=== PATIENT | female | born 1960 | race Caucasian/White ===

== ENCOUNTER → 2020-07-19 | Outpatient (CLI) | payer OTHER ==
[2020-07-19 13:23] LABS: INR 0.9 (<1.2); Partial Thromboplastin Time 23.6 sec (22.0-30.0); Prothrombin Time 10.1 sec (9.0-12.0)
[2020-07-19 13:25] LABS: Appearance,Urine Clear (Clear); Bilirubin,Urine Negative (Negative); Blood,Urine Negative (Negative); Color,Urine Colorless; Glucose,Urine (UA) Negative (Negative); Ketones,Urine Negative (Negative); Leukocyte Esterase,Urine Negative (Negative); Nitrite,Urine Negative (Negative); PH, Urine 6.5 (5.0-8.0); Protein,Urine Negative (Negative); Specific Gravity,Urine 1.003 (1.001-1.035); Urobilinogen,Urine <2.0 mg/dL (<2.0)
[2020-07-19 20:25] LABS: HGB 13.9 g/dL (12.0-15.0); MCHC 33.1 g/dL (32.0-37.0); MCV 90.5 fL (80.0-97.0); Mean Platelet Volume 10.2 fL (9.5-12.2); Platelet Count 251 X 10*3/uL (140-440); RBC 4.64 X 10*6/uL (4.10-5.20); RDW 12.6 % (11.5-14.5); WBC 6.06 X 10*3/uL (4.50-10.00)
[2020-07-20 03:51] LABS: African American GFR (CKD) 92.9 (60.0-200.0); Albumin 4.3 g/dL (3.80-4.90); Albumin/Globulin Ratio 1.79 (1.60-3.17); Anion Gap 11.8 mmol/L (4.00-12.00); Calcium 9.6 mg/dL (8.7-10.3); Carbon Dioxide 24.2 mmol/L (21.6-31.8); Globulin 2.4 g/dL (1.6-3.3); Non-African American GFR(CKD) 80.1 (60.0-200.0); Potassium 4.7 mmol/L (3.5-5.5); Total Bilirubin 0.4 mg/dL (0.3-1.2); Total Protein 6.7 g/dL (6.2-8.2)
== END | disposition home or self-care (01) ==
LOC: LABWHC1 11:31
PROVIDERS: ATTEND Orthopaedic Surgery
DX: Z01.812 Encounter for preprocedural laboratory examination (principal); M16.11 Unilateral primary osteoarthritis, right hip
CPT/HCPCS: 36415; 80053; 81003; 85027; 85610; 85730; 87070

== ENCOUNTER 2020-07-30 10:57 | Day surgery (SDC) | payer OTHER ==
[2020-07-24 15:59] VITALS: BMI 40.1
[~2020-07-30 10:57] MED LIST: ACETAMINOPHEN TAB 500 MG TAB PO PRN; DEXAMETHASONE SOD PHOSPHATE 4 MG/ML 1 ML VIAL IV ONE; GABAPENTIN 300 MG CAP PO PRN; HYDROmorphone 0.5 MG/0.5 ML SYRINGE IVP PRN; MELOXICAM 7.5 MG TAB PO PRN; MIDAZOLAM 2 MG/2 ML VIAL IV PRN; ONDANSETRON 4 MG/2 ML VIAL IVP ONE; SCOPOLAMINE 1.5MG/72HR PATCH TRANSDERM ONE; TRANEXAMIC ACID 1,000 MG in SODIUM CHLORIDE 0.9% 100 ML IVPB PRN
[2020-07-30] MEDS: LACTATED RINGERS 1,000 ML IV SCH (11:54)
[2020-07-30] MEDS ORDERED: HYDROmorphone 1 MG/ML 1 ML SYRINGE IVP PRN (12:31)
[2020-07-30] MEDS ORDERED: HYDROmorphone 0.2 MG/1 ML SYRINGE IVP PRN (12:31)
[2020-07-30] MEDS ORDERED: MAGNESIUM HYDROXIDE 2,400 MG/10 ML CUP PO PRN (12:31)
[2020-07-30] MEDS ORDERED: ONDANSETRON 4 MG/2 ML VIAL IVP PRN (12:31)
[2020-07-30] MEDS ORDERED: NALOXONE 0.4 MG/ML 1 ML VIAL IV PRN (12:31)
[2020-07-30] MEDS ORDERED: HYDROmorphone 0.5 MG/0.5 ML SYRINGE IVP PRN (12:31)
[2020-07-30] MEDS ORDERED: hydrOXYzine pamoate 25 MG CAP PO PRN (12:31)
[2020-07-30] MEDS ORDERED: HYDROcodone/APAP 7.5-325MG 1 EACH TAB PO PRN (12:34)
[2020-07-30] MEDS ORDERED: SODIUM CHLORIDE 0.9% IRRIG 1,000 ML BTL IRRIGATION ONE (12:44)
[2020-07-30] MEDS ORDERED: PHENYLEPHRINE-0.9% NACL SYG 1,000 MCG/10 ML SYRINGE ONE (12:44)
[2020-07-30] MEDS ORDERED: PROPOFOL 10 MG/ML 20 ML VIAL IV ONE (12:44)
[2020-07-30] MEDS ORDERED: HEPARIN SODIUM,PORCINE 10,000 UNIT/ML 1 ML VIAL ONE (12:44)
[2020-07-30] MEDS ORDERED: ePHEDrine SULFATE/0.9% NACL/PF 50 MG/5 ML SYRINGE IV ONE (12:44)
[2020-07-30] MEDS ORDERED: MIDAZOLAM 2 MG/2 ML VIAL ONE (12:44)
[2020-07-30] MEDS ORDERED: ceFAZolin 3,000 MG in SODIUM CHLORIDE 0.9% IRRIGATIO 3,000 ML IRRIGATION ONE (12:46)
[2020-07-30] MEDS: ROPIVACAINE/EPI/CLONIDINE/KET 50 ML SYRINGE MISCELLANE PRN ×2 (13:21→14:33)
[2020-07-30] MEDS ORDERED: LACTATED RINGERS 1,000 ML IV ONE ×2 (13:36→15:31)
--- NOTE | 2020-07-30 14:59 | FL ---
EXAMINATION TYPE: FL guidance operating room, XR Hip Limited RT DATE OF EXAM: 07/30/2020 CLINICAL HISTORY: Right hip pain and osteoarthritis. TECHNIQUE: Fluoroscopy. Intraoperative limited views right hip. COMPARISON: None. FINDINGS: Fluoroscopic guidance was provided during right hip replacement procedure performed by Dr. Moody. A total of 16 seconds of fluoroscopic time was utilized during the procedure and 2 spot i mages was acquired. Intraoperative images obtained show metallic hardware from total right hip arthroplasty satisfactory in position on frontal projection. IMPRESSION: As Above.
--- NOTE | 2020-07-30 15:00 | P.OP ---
Date of Procedure: 07/30/20 Preoperative Diagnosis: Severe osteoarthritis right hip Postoperative Diagnosis: 1. Severe osteoarthritis right hip 2. Intraoperative calcar fracture right hip Procedure(s) Performed: 1. Right total hip arthroplasty with a direct anterior approach 2. Open reduction fixation right intraoperative calcar fracture with cerclage wiring Implants: [employer] Polarstem standard size 2 collared [employer] R3, 3 hole hemispherical acetabular shell, 48 mm [employer] Reflection 6.5 mm cancellus screw, 20 mm 2 [employer] R3, XLPE 20 acetabular liner [employer] Oxinium femoral head 32 m, +4 Eamon cable ready cerclage wire All components were press-fit. The articulation is Oxinium on polyethylene. Anesthesia: spinal Surgeon: Donald Moody Military Source Operations Officer #1: Chrissy Miramontes Estimated Blood Loss (ml): 350 (134 mL returned with Cell Saver) Pathology: other (Femoral head) Condition: stable Disposition: PACU Indications for Procedure: After failure of conservative treatment we discussed the surgical and nonsurgical treatment options at length. Patient wishes to proceed with a total hip arthroplasty with a direct anterior approach. Complications specific to this procedure were discussed at length, including but not limited to infection, leg length discrepancy, dislocation, nerve injury, and fracture. Covid-19 was also discussed at length with the patient, and they are aware of the current policies and procedures. The patient was given the option of delaying surgery, but they elect to proceed knowing these risks. Patient is aware of all these complications and informed consent was obtained Operative Findings: The operative findings are consistent with severe osteoarthritis of the right hip. He is also noted that during the surgery a small fracture of the proximal calcar was noted, and this was fixated with a cerclage cable wire. There is no evidence of the fracture extending beyond the lesser trochanter. Description of Procedure: Patient was seen and evaluated in the preoperative area and the consent was reviewed. The operative site was marked with a skin marker. The patient was then brought to the operating room and given preoperative antibiotics intravenously. 1 g of Tranexamic acid was also given intravenously. A spinal anesthetic was administered by the anesthesia department. The patient was then placed on the Westminster table with the bony prominences well-padded. The hip area was then prepped with a ChloraPrep solution and draped in the usual sterile fashion. A universal timeout was then performed, which confirmed the patient's name, surgical site, ALLERGIES, and procedure being performed on the consent. Next the incision site was located at 1 cm distal to the anterior superior iliac spine along the flexion crease of the hip. The skin and subcutaneous tissues were sharply incised. Incision was carefully dissected down to the fascia overlying the tensor fascia leida muscle. This fascia was then incised in line with the incision. Care was taken to stay laterally in order to avoid injuring the lateral femoral cutaneous nerve. Next, using blunt finger dissection, the tensor fascia leida muscle was dissected off its investing fascia. The muscle was then carefully retracted laterally with a cobra retractor over the lateral neck of the femur. Next, the circumflex vessels were identified and cauterized using the AquaMantis device. The anterior hip capsule was then exposed. The capsule was then opened and an inverted T fashion. Cobra retractors were then placed intracapsularly. The retractors were maintained intracapsular throughout the procedure. The proximal femur was then visualized. A small amount of traction was placed on the leg. The femoral neck was then osteotomized appropriate level above the lesser trochanter. A small wedge of bone was then removed from the remaining femoral head. Next, using a corkscrew the femoral head was removed from the acetabulum. On gross visual inspection, the femoral head had complete loss of articular cartilage and multiple periarticular osteophytes. The femoral head was then measured. Attention was then turned to the acetabulum. The acetabulum was exposed and any remaining labrum was excised. Sequential reaming of the acetabulum was performed using fluoroscopic guidance until there was a good bed of bleeding cancellus bone. When the appropriate size was reached, a trial was then placed. The position and fit of the trial was checked with fluoroscopy. The trial was then removed. Then, using fluoroscopic guid ance, the final implant was impacted at 20 of anteversion and 40 of abduction, and fully seated in the acetabulum. 2 screws were then placed in the acetabulum. Again fluoroscopy was used to check position of the screws. Next, the liner was then impacted, with a 20 elevated liner located in the anterior superior quadrant. Component locking was confirmed. Attention was then directed to the femur. With the aid of the [place] table, the femur was externally rotated to approximately 130, extended, and adducted under the opposite leg. A side hook was then placed under the proximal femur, and the side hook elevator was used to elevate the proximal femur while releasing the capsule. Retractors were then placed. A capsular release was performed, as well as a release of the conjoined tendon, which afforded excellent visualization of the proximal femur. Next, a box osteotome was used to lateralize the proximal femur. A mica plate layer hand was then used to locate the femoral canal. Sequential broaching was then performed with appropriate size which afforded excellent fixation in the proximal femur. At this point it was noted there was a small fracture of the proximal calcar. The fracture line was evaluated and found not to extend past the lesser trochanter. At this time a decision was reached to place a cerclage cable around the calcar fracture in order to protect the proximal femur. A Eamon cable ready cerclage wire was then passed around the proximal calcar without difficulty. A trial was then placed with appropriate head and neck, and the hip was gently reduced with the aid of the Westminster table. Fluoroscopy was then used to check position of the components, as well as to ensure equal leg lengths. The hip was then gently dislocated and the trials were then removed. Final implants were then impacted and the hip was again reduced. Final fluoroscopic x-rays confirmed that the components were in anatomic position, as well as equal leg lengths. The hip was also taken through range of motion, and found to be stable. The hip was then copiously irrigated with antibiotic solution with pulsatile lavage. The hip was then irrigated with Irrisept solution. The soft tissues were then injected with a ropivacaine solution, which consisted of 246.25 mg of ropivacaine, 0.5 mg of epinephrine, 30 mg of Toradol, 80 g of clonidine, and 48.45 mL of sterile water, for a total of 100 mL of fluid injected. A second dose of 1 g of Tranexamic acid was also given intravenously. Any blood collected by Cell Saver was then returned to the patient at this time. The fascia was then closed with 2-0 strata fix suture. The subcutaneous tissue was closed with 3-0 Vicryl. The subcuticular tissue was closed with 3-0 strata fix suture. The skin was then closed with Exofin skin glue. After the glue and dried, and Optifoam silver impregnated dressing was applied. The patient was then transferred to the recovery room in stable condition. The welder assistant JAKE Torres was required due to the complexity of surgery, and the need for skilled surgical scrub technician for positioning, draping, exposure, retraction, and closure of the wound.
--- NOTE | 2020-07-30 15:29 | XR ---
EXAMINATION TYPE: XR Hip Limited RT DATE OF EXAM: 07/30/2020 CLINICAL HISTORY: Right hip pain and osteoarthritis. TECHNIQUE: Single AP portable view of right hip is obtained immediately postoperatively. COMPARISON: None. FINDINGS: Metallic hardware from right hip arthroplasty is seen and appears satisfactory in alignment and position. There is evidence of recent surgery with adjacent subcutaneous gas noted laterally. Right-sided pelvic phleboliths incidentally noted. IMPRESSION: Metallic hardware from right hip arthroplasty is satisfactory in position.
[2020-07-30] MEDS: SODIUM CHLORIDE 0.9% 1,000 ML IV SCH (18:07)
[2020-07-30 20:04] VITALS: RESP 20
[2020-07-30] MEDS: HYDROcodone/APAP 7.5-325MG 1 EACH TAB PO PRN (21:00)
[2020-07-30] MEDS ORDERED: SENNOSIDES-DOCUSATE SODIUM 1 EACH TAB PO SCH (21:00)
[2020-07-30] MEDS: ASPIRIN 325 MG TAB PO SCH (21:00)
--- NOTE | 2020-07-31 02:15 | P.CONS ---
History of Present Illness - Reason for Consult Consult date: 07/30/20 medical management Requesting physician: Donald Moody - Chief Complaint right hip pain - History of Present Illness 59 year old female with arthritis, and hypothyroid patient presented for scheduled right hip arthroplasty due to advanced severe OA. she tolerated procedure well, no observed immediate complications, she denies any chest pain , SOB, fever, chills, abd pain nausea or vomiting. she is tolerating PO intake , and pain well tolerated Review of Systems Pertinent positives as noted in HPI. All other systems were reviewed and are negative Past Medical History Past Medical History: Osteoarthritis (OA), Thyroid Disorder History of Any Multi-Drug Resistant Organisms: None Reported Past Surgical History: Section, Hysterectomy, Tonsillectomy Additional Past Surgical History / Comment(s): colonoscopy Past Anesthesia/Blood Transfusion Reactions: No Reported Reaction Past Psychological History: No Psychological Hx Reported Smoking Status: Never smoker Past Alcohol Use History: None Reported Past Drug Use History: None Reported - Past Family History Mother Family Medical History: No Reported History Medications and Allergies Home Medications Medication Instructions Recorded Confirmed Type Levothyroxine Sodium [Levoxyl] 112 mcg PO DAILY 07/24/20 07/24/20 History Meloxicam 15 mg PO DAILY 07/24/20 07/24/20 History Phentermine HCl 37.5 mg PO AC-BRKFST 07/24/20 07/24/20 History Allergies Allergy/AdvReac Type Severity Reaction Status Date / Time No Known Allergies Allergy Verified 07/30/20 11:38 Physical Exam Vitals: Vital Signs Temp Pulse Pulse Resp BP BP Pulse Ox 07/30/20 19:55 97.7 F 58 L 20 102/66 95 07/30/20 18:15 78 118/65 07/30/20 16:39 97.4 F L 70 16 107/68 99 07/30/20 16:17 78 16 115/65 99 07/30/20 16:00 75 16 119/65 99 07/30/20 15:45 77 16 117/67 99 07/30/20 15:32 73 16 113/59 99 07/30/20 15:15 80 16 115/56 99 07/30/20 15:00 88 16 147/62 99 07/30/20 14:56 97.7 F 90 14 123/63 99 07/30/20 11:36 97 F L 75 16 129/74 95 Intake and Output 07/30/20 07/30/20 07/31/20 14:59 22:59 06:59 Intake Total 1950 480 Output Total 350 Balance 1601 480 Intake: IV 1950 50 Intake, IV Titration 70 Amount Sodium Chloride 0.9% 1, 70 000 ml @ 70 mls/hr IV . [id number] [facility] Rx#:[id number] Oral 360 Output: Estimated Blood Loss 350 Other: # Voids 1 Weight 108.6 kg 108.6 kg Constitutional: No acute distress, conversant, pleasant Eyes: Anicteric sclerae, moist conjunctiva, Pupils equal round reactive to light ENMT: NC/AT Oropharynx clear, no erythema, or exudates Neck: Supple, FROM, no masses, or JVD No carotid bruits No thyromegaly Lungs: Clear to auscultation Clear to percussion Normal respiratory effort, no accessory muscle use Cardiovascular: Heart regular in rate and rhythm, No murmurs, gallops, or rubs No peripheral edema Abdominal: Soft Nontender, no guarding, rebound or rigidity Abdomen moving with respiration Normoactive bowel sounds No hepatomegaly, No splenomegaly No palpable mass No abdominal wall hernia noted Skin: Normal temperature, tone, texture, turgor No induration No subcutaneous nodules No rash, lesions No ulcers Extremities: No digital cyanosis No clubbing Pedal pulses intact and symmetrical Radial pulses intact and symmetrical No calf tenderness Psychiatric: Alert and oriented to person, place and time Appropriate affect fair judgement Neuro Muscles Strength 5/5 in all 4 extremities limited over right lower extremity due to pain from post op Sensation to light touch grossly present throughout Cranial nerves II-XII grossly intact No focal sensory deficits Lymphatics: no palpable cervical or supraclavicular , or inguinal lymph nodes Assessment and Plan Assessment: right total hip arthroplasty , POD zero pain control and DVT PPx per ortho hypothyroid , resume homemeds\ follow up labs full code Thank you for allowing us to participate in the care of this patient. Do not hesitate to contact us with questions. Someone can be reached from the [facility] hospitalist group at all hours of the day at [phone].
[2020-07-31] MEDS: HYDROcodone/APAP 7.5-325MG 1 EACH TAB PO PRN ×2 (02:49→09:19)
[2020-07-31] MEDS: SODIUM CHLORIDE 0.9% 1,000 ML IV SCH (02:49)
[2020-07-31] MEDS: LACTATED RINGERS 1,000 ML IV SCH (02:54)
[2020-07-31 05:55] VITALS: BP 102/68; PULSE 81; TEMP 97.8
[2020-07-31 06:50] LABS: Basophils % (A) 0 %; Eosinophils # (A) 0.1 k/uL (0-0.7); Eosinophils % (A) 1 %; HCT 33.8 % (34.0-46.0); HGB 11.5 gm/dL (11.4-16.0); Lymphocytes # (A) 1.7 k/uL (1.0-4.8); Lymphocytes % (A) 14 %; MCH 30.7 pg (25.0-35.0); MCV 90.2 fL (80.0-100.0); Mean Platelet Volume 6.7; Monocytes # (A) 0.7 k/uL (0-1.0); Monocytes % (A) 6 %; Neutrophils % (A) 78 %; Platelet Count 207 k/uL (150-450); RBC 3.74 m/uL (3.80-5.40); RDW 12.5 % (11.5-15.5); WBC 11.5 k/uL (3.8-10.6)
[2020-07-31] MEDS: ASPIRIN 325 MG TAB PO SCH (08:30)
[2020-07-31] MEDS ORDERED: MELOXICAM 7.5 MG TAB PO SCH (09:00)
--- NOTE | 2020-07-31 11:44 | P.PN ---
<Pee Stacy - Last Filed: 07/31/20 11:35> Subjective Progress Note Date: 07/31/20 Hospital course: Patient is a 59-year-old female with a past medical history of hypothyroidism and osteoarthritis. She is currently admitted under orthopedic surgery team and is status post post right total hip arthroplasty completed by Dr. Moody secondary to severe osteoarthritis. We have been consulted for continued medical management. Physical exam: Patient was seen and fully evaluated at the bedside this morning. Patient sitting up in the chair, reports she is doing well. Today is Postop day 1 and patient has been ambulating to and from restroom with walker and denies having any difficulties. Patient reports eating regular diet without any postoperative nausea or vomiting. Patient reports urinating without difficulties. Denies bowel movements since surgical procedure. Patient denies having any other complaints or concerns at this time including headache, lightheadedness, dizziness, changes in her vision or hearing, chest pain or palpitations, shortness of breath, abdominal pain, nausea, vomiting, or experiencing any numb ness/tingling/weakness in her extremities. General: non toxic, no distress, appears at stated age Derm: warm, dry. Postsurgical dressing in place. No signs of bleeding noted. Head: atraumatic, normocephalic, symmetric Eyes: EOMI, no lid lag, anicteric sclera Mouth: no lip lesion, mucus membranes moist Cardiovascular: S1S2 reg, no murmur, positive posterior tibial pulses bilaterally, cap refill less than 2 seconds Lungs: Respirations even, regular, and unlabored. Lungs CTA bilaterally, no rho nchi, no rales, and no wheezes. No accessory muscle use. Abdominal: Soft, nontender to palpation, no guarding, no appreciable organomegaly Ext: No gross muscle atrophy, no edema, no contractures Neuro: CN II-XI grossly intact, no focal neuro deficits Psych: Alert, oriented, appropriate affect Plan of care: Status post total right hip arthroplasty -Surgical procedure completed by Dr. Moody on 07/30/20. Today is postop day 1. -Surgical incision care/dressing changes, DVT prophylaxis, pain management, weightbearing, and PT/OT as directed per primary admitting orthopedic surgery team. Hypothyroidism -Continue daily medication management with levothyroxine 112 g each morning. Thank you for allowing us to participate in the care of this pleasant patient. Do not hesitate to contact us with questions. Someone can be reached from the [facility] hospitalist group all hours of the day at [phone] or via perfect serve. Objective - Vital Signs Vital signs: Vital Signs Temp 97.8 F 07/31/20 05:00 Pulse 81 07/31/20 05:00 Resp 20 07/31/20 05:00 BP 102/68 07/31/20 05:00 Pulse Ox 98 07/31/20 05:00 Intake & Output 07/30/20 07/31/20 07/31/20 18:59 06:59 18:59 Intake Total 207 1660 Output Total 350 Balance 1721 1660 Weight 108.6 kg Intake: IV 2000 Intake, IV Titration 70 940 Amount Sodium Chloride 0.9% 1, 70 840 000 ml @ 70 mls/hr IV . [id number] [facility] Rx#:[id number] ceFAZolin 2 gm In Sodium 100 Chloride 0.9% 50 ml @ 100 mls/hr IVPB Q8H [facility] Rx#: [id number] Oral 720 Output: Estimated Blood Loss 350 Other: # Voids 2 1 - Labs CBC & Chem 7: 07/31/20 06:09 Labs: Abnormal Lab Results - Last 24 Hours (Table) 07/31/20 Range/Units 06:09 WBC 11.5 H (3.8-10.6) k/uL RBC 3.74 L (3.80-5.40) m/uL Hct 33.8 L (34.0-46.0) % Neutrophils # 9.0 H (1.3-7.7) k/uL <Sydni Perdomo - Last Filed: 07/31/20 13:31> Objective - Vital Signs Vital signs: Vital Signs Temp 97.8 F 07/31/20 05:00 Pulse 81 07/31/20 05:00 Resp 20 07/31/20 05:00 BP 102/68 07/31/20 05:00 Pulse Ox 98 07/31/20 05:00 Intake & Output 07/30/20 07/31/20 07/31/20 18:59 06:59 18:59 Intake Total 2070 1660 Output Total 350 Balance 1721 1660 Weight 108.6 kg Intake: IV 2000 Intake, IV Titration 70 940 Amount Sodium Chloride 0.9% 1, 70 840 000 ml @ 70 mls/hr IV . [id number] [facility] Rx#:[id number] ceFAZolin 2 gm In Sodium 100 Chloride 0.9% 50 ml @ 100 mls/hr IVPB Q8H [facility] Rx#: [id number] Oral 720 Output: Estimated Blood Loss 350 Other: # Voids 2 1 - Labs CBC & Chem 7: 07/31/20 06:09 07/31/20 06:09 Labs: Abnormal Lab Results - Last 24 Hours (Table) 07/31/20 07/31/20 Range/Units 06:09 06:09 WBC 11.5 H (3.8-10.6) k/uL RBC 3.74 L (3.80-5.40) m/uL Hct 33.8 L (34.0-46.0) % Neutrophils # 9.0 H (1.3-7.7) k/uL Glucose 150 H (70-110) mg/dL Calcium 8.3 L (8.7-10.3) mg/dL Assessment and Plan Assessment: I discussed the care with Pee Stacy NP and reviewed the findings and plan as documented in the note above. I did not physically speak with or examine the patient on this date.
[2020-07-31 13:28] LABS: African American GFR (CKD) 109.1 (60.0-200.0); Anion Gap 6.6 mmol/L (4.00-12.00); BUN/Creat Ratio 15.71 Ratio (12.00-20.00); Calcium 8.3 mg/dL (8.7-10.3); Carbon Dioxide 26.4 mmol/L (21.6-31.8); Non-African American GFR(CKD) 94.2 (60.0-200.0); Potassium 4.7 mmol/L (3.5-5.5)
--- NOTE | 2020-07-31 15:25 | P.DS ---
Providers Expected date of discharge: 07/31/20 Attending physician: Donald Moody Consults: 07/30/20 12:31 Consult Physician Routine Consulting Provider: Sandra Russ Consult Reason/Comments: medical management Do you want consulting provider notified?: Yes 07/30/20 17:25 Consult Physician Routine Consulting Provider: Sydni Perdomo Consult Reason/Comments: medical managment Do you want consulting provider notified?: Yes Primary care physician: Sandra Russ - Discharge Diagnosis(es) (1) Osteoarthritis of right hip Status: Acute (2) S/P total hip arthroplasty Status: Acute Hospital Course: This is a 59-year-old female with known history of degenerative arthritis of the right hip. The patient presented for evaluation as an outpatient. After discussion and consideration patient elects to proceed with total hip arthroplasty. The patient is seen preoperatively by Dr. Moody and medically cleared for surgery by their primary care physician. Patient is admitted to [facility] on 07/30/2020 for total hip arthroplasty. The procedure is performed without complication or sequelae. The patient is doing well postoperatively. Labs and vital signs are stable on day of discharge. On day of discharge patient's hip incision is healing well. There is minimal erythema. There is no drainage noted at this time. There is minimal soft tissue swelling to the hip and thigh. Patient has full foot and ankle motion without difficulty or pain. Calf is soft and nontender to palpation. Neurovascular status to the right lower extremity is intact. Patient is discharged home in good condition. Opioid start talking form is reviewed and signed. Please see med rec for accurate list of home medications. Patient Condition at Discharge: Good Plan - Discharge Summary Discharge Rx Participant: Yes New Discharge Prescriptions: New HYDROcodone/APAP 7.5-325MG [[place] 7.5-325] 1 - 2 tab PO Q6H PRN #32 tab PRN Reason: Pain Sennosides [Senokot] 2 tab PO DAILY PRN #60 tablet PRN Reason: Constipation hydrOXYzine pamoate [Vistaril] 25 mg PO Q4HR PRN cap PRN Reason: Nausea, Anxiety, Pain Control Aspirin 325 mg PO BID #60 tab Magnesium Hydroxide [Milk of Magnesia Concentrate] 2,400 mg PO DAILY PRN ml PRN Reason: Constipation Continue Levothyroxine Sodium [Levoxyl] 112 mcg PO DAILY No Action Phentermine HCl 37.5 mg PO AC-BRKFST Meloxicam 15 mg PO DAILY Discharge Medication List Levothyroxine Sodium [Levoxyl] 112 mcg PO DAILY 07/24/20 [History] Meloxicam 15 mg PO DAILY 07/24/20 [History] Phentermine HCl 37.5 mg PO AC-BRKFST 07/24/20 [History] Aspirin 325 mg PO BID #60 tab 07/31/20 [Rx] HYDROcodone/APAP 7.5-325MG [[place] 7.5-325] 1 - 2 tab PO Q6H PRN #32 tab 07/31/20 [Rx] Magnesium Hydroxide [Milk of Magnesia Concentrate] 2,400 mg PO DAILY PRN ml 07/31/20 [Rx] Sennosides [Senokot] 2 tab PO DAILY PRN #60 tablet 07/31/20 [Rx] hydrOXYzine pamoate [Vistaril] 25 mg PO Q4HR PRN cap 07/31/20 [Rx] Follow up Appointment(s)/Referral(s): Donald Moody DO [Doctor of Osteopathic Medicine] - 08/15/20 10:20 am Yeni Juarez [NON-STAFF] - 1 Week Patient Instructions/Handouts: Hydrocodone/Acetaminophen (By mouth), Aspirin (By mouth), Laxative, Stimulant Combination (By mouth) Activity/Diet/Wound Care/Special Instructions: Weight bearing as tolerated with walker Leave dressing intact. Dressing may be removed by home care nurse in 7 days. If the dressing becomes saturated, please remove. May shower with dressing on. Once the initial dressing is removed after 7 days, please apply a clean dressing twice daily. Please take aspirin 325 mg twice daily for 30 days to prevent blood clots. Please wear compression stockings during the day until follow-up appointment to help prevent blood clots. May remove at night. Follow-up with [facility] in 2 weeks, please call with any questions or concerns [phone] beba will deliver the pt walker to her home. [facility] will be calling you in 24-48 hr to set up an appt to come to your house to start working with you. their phone number is #[phone] Discharge Disposition: HOME WITH HOME HEALTH SERVICES
== END 2020-07-31 14:39 | disposition home health service (06) ==
LOC: OR 10:57 → 5NMEDONC 16:23 → OR 07-31 14:39
PROVIDERS: ATTEND Orthopaedic Surgery
DX: M16.11 Unilateral primary osteoarthritis, right hip (principal); E03.9 Hypothyroidism, unspecified; Z97.3 Presence of spectacles and contact lenses; Z98.891 History of uterine scar from previous surgery; E66.01 Morbid (severe) obesity due to excess calories; Z68.41 Body mass index [BMI] 40.0-44.9, adult; Z90.710 Acquired absence of both cervix and uterus; Z90.89 Acquired absence of other organs; Z83.3 Family history of diabetes mellitus; Z79.1 Long term (current) use of non-steroidal anti-inflammatories (NSAID); Z79.890 Hormone replacement therapy; Z79.899 Other long term (current) drug therapy
CPT/HCPCS: 97162; 97535; 97166; 86891; 86900; 86901; 80048; 85025; 86850; 88300; 87635; 73501; 27130; C1713; C1776; J2250; J1644; J1100; J0690 ×3; J2405; J2370; J2704; J1170